=== PATIENT | female | born 1980 | race Caucasian/White ===

== ENCOUNTER 2022-02-02 17:30 | Emergency (ER) | payer BC, MEDICAID ==
[~2022-02-02] VITALS: Ht 167.6 cm; Wt 100.0 kg
[2022-02-02 18:20] LABS: HEMATOCRIT 40.2 % (37.0-47.0); HEMOGLOBIN 13.3 g/dl (12.0-16.0); IMMATURE GRANULOCYTES 0.4 % (0.0-5.0); MEAN CORPUSCULAR HGB 28.1 pG CALC (26.0-32.0); MEAN CORPUSCULAR HGB CONC 33.1 g/dL CAL (32.0-36.0); NEUT# 5.72 thou/uL (2.00-7.15); RED BLOOD COUNT 4.73 mill/uL (4.20-5.60); RED CELL DISTRI WIDTH 13.8 % (11.5-15.5)
[2022-02-02 18:41] LABS: ALBUMIN 4.4 g/dL (3.2-5.0); ALKALINE PHOSPHATASE 71 u/l (38-126); ANION GAP 14 (6-22 (CALC)); BILIRUBIN, TOTAL 0.3 mg/dL (0.0-1.4); BUN 10 mg/dL (7-17); BUN/CREATININE RATIO 13 (12-20 (CALC)); CARBON DIOXIDE 23 mmol/l (22-30); CHLORIDE 102 mmol/l (95-108); CREATININE 0.8 mg/dL (0.5-1.0); GFR FOR AFR.AMER. > 60 ML/MIN (>=60 (CALC)); GFR OTHER RACES > 60 ML/MIN (>=60 (CALC)); POTASSIUM 3.4 mmol/l (3.5-5.1); SGOT/AST 27 u/l (14-36); SODIUM 136 mmol/l (137-146); TOTAL PROTEIN 7.4 g/dL (6.3-8.2)
[2022-02-02 19:49] LABS: URINE BILIRUBIN - DIPSTICK NEGATIVE (NEGATIVE); URINE BLOOD DIPSTICK NEGATIVE (NEGATIVE); URINE COLOR YELLOW; URINE GLUCOSE - DIPSTICK NEGATIVE (NEGATIVE); URINE KETONE NEGATIVE (NEGATIVE); URINE LEUK ESTERASE NEGATIVE (NEGATIVE); URINE PH 6.5 (4.5-8.0); URINE PROTEIN - DIPSTICK NEGATIVE (NEG-TRACE); URINE UROBILINOGEN - DIPSTICK 0.2 E.U./dL (0.2)
[2022-02-02 19:52] LABS: URINE NITRITE - DIPSTICK NEGATIVE (Negative)
[2022-02-02] MEDS ORDERED: PAXLOVID PO (20:10)
[2022-02-02 21:09] VITALS: BP 99/45
== END 2022-02-02 21:06 | disposition home or self-care (01) | DRG 179 ==
LOC: ED 17:30
PROVIDERS: Family Medicine
DX: U07.1 COVID-19 (principal); R50.9 Fever, unspecified; R05.9 Cough, unspecified; R53.1 Weakness; R53.83 Other fatigue; E03.9 Hypothyroidism, unspecified

== ENCOUNTER 2023-04-08 06:57 | Emergency (ER) | payer BC, MEDICAID ==
[~2023-04-08] VITALS: Ht 167.6 cm; Wt 92.9 kg
[2023-04-08] VITALS (8 sets, daily range): BP systolic 81–116; BP diastolic 41–82
[~2023-04-08 06:57] MED LIST: PAXLOVID PO
== END 2023-04-08 11:23 | disposition home or self-care (01) | DRG 605 ==
LOC: ED 06:57
PROC: 2W3DX1Z Immobilization of Left Lower Arm using Splint (ICD-10-PCS; principal; 2023-04-08)
DX: S00.03XA Contusion of scalp, initial encounter (principal); S52.135A Nondisplaced fracture of neck of left radius, initial encounter for closed fracture; E06.3 Autoimmune thyroiditis; W18.2XXA Fall in (into) shower or empty bathtub, initial encounter; Y93.E1 Activity, personal bathing and showering; Y92.002 Bathroom of unspecified non-institutional (private) residence as the place of occurrence of the external cause